=== PATIENT | female | born 1975 | race Caucasian/White ===

== ENCOUNTER 2018-09-20 11:47 | Day surgery (SDC) | payer OTHER ==
[~2018-09-20] VITALS: Ht 165.1 cm; Wt 138.0 kg
[2018-09-20] MEDS ORDERED: PROPOFOL 1% 20 ML VIAL IVP ONE (11:48)
[2018-09-20] MEDS ORDERED: LIDOCAINE/PF 2% 5 ML SYRINGE IVP ONE (11:48)
[2018-09-20] MEDS ORDERED: SODIUM CHLORIDE 0.9% 1,000 ML IV ONE ×2 (12:00→12:30)
== END 2018-09-20 15:20 | disposition home or self-care (01) ==
LOC: SURGERY 11:47
PROVIDERS: ATTEND Student in an Organized Health Care Education/Training Program
DX: K25.9 Gastric ulcer, unspecified as acute or chronic, without hemorrhage or perforation (principal); K44.9 Diaphragmatic hernia without obstruction or gangrene; I10 Essential (primary) hypertension; F41.8 Other specified anxiety disorders; E11.40 Type 2 diabetes mellitus with diabetic neuropathy, unspecified; Z87.442 Personal history of urinary calculi
CPT/HCPCS: 36415; 43239; 84702; 88305; 88312; 88313; C1769; J2704; J3490; J7030

== ENCOUNTER 2019-04-18 10:58 | Day surgery (SDC) | payer OTHER ==
[~2019-04-18] VITALS: Ht 165.1 cm; Wt 144.1 kg
[~2019-04-18 10:58] MED LIST: SODIUM CHLORIDE 0.9% 1,000 ML IV ONE
[2019-04-18] MEDS ORDERED: LIDOCAINE/PF 2% 5 ML VIAL IM ONE (10:59)
[2019-04-18] MEDS ORDERED: PROPOFOL 1% 20 ML VIAL IVP ONE (10:59)
[2019-04-18] MEDS ORDERED: SODIUM CHLORIDE 0.9% 1,000 ML IV ONE (11:00)
[2019-04-18] MEDS ORDERED: BUPR-93 PO (11:15)
[2019-04-18] MEDS ORDERED: OMEG-135 PO (11:15)
[2019-04-18] MEDS ORDERED: TRAZ-220 PO (11:15)
[2019-04-18] MEDS ORDERED: INSU500V SQ ×2 (11:15)
[2019-04-18] MEDS ORDERED: CHOL50004 PO (11:15)
[2019-04-18] MEDS ORDERED: VITA-328 PO (11:15)
[2019-04-18] MEDS ORDERED: LISI-662 PO (11:15)
[2019-04-18] MEDS ORDERED: TAPE50TA2 PO (11:15)
[2019-04-18] MEDS ORDERED: LAMO100 PO (11:15)
[2019-04-18] MEDS ORDERED: GABA-533 PO (11:15)
[2019-04-18] MEDS ORDERED: SIMV-260 PO (11:15)
[2019-04-18] MEDS ORDERED: DEXTROSE 50%-WATER 25 GM/50 ML SYRINGE IVP ONE ×2 (11:30→11:31)
[2019-04-18 11:36] LABS: GLUCOMETER DEV NAME(LOC) SDS.; GLUCOSE,POINT OF CARE 49 MG/DL (70-110)
[2019-04-18 11:54] LABS: GLUCOSE,RANDOM 50 mg/dL (70-110); HCG,QUANTITATIVE < 1 mIU/mL (0-6)
[2019-04-18 13:46] LABS: GLUCOMETER DEV NAME(LOC) SDS.; GLUCOSE,POINT OF CARE 58 MG/DL (70-110)
[2019-04-18 14:46] LABS: GLUCOMETER DEV NAME(LOC) SDS.; GLUCOSE,POINT OF CARE 80 MG/DL (70-110)
== END 2019-04-18 14:00 | disposition home or self-care (01) ==
LOC: SURGERY 10:58
PROVIDERS: ATTEND Student in an Organized Health Care Education/Training Program
DX: R13.10 Dysphagia, unspecified (principal); Z79.01 Long term (current) use of anticoagulants; Z79.899 Other long term (current) drug therapy; Z88.0 Allergy status to penicillin; Z88.8 Allergy status to other drugs, medicaments and biological substances; Z88.1 Allergy status to other antibiotic agents; Z91.040 Latex allergy status; R97.8 Other abnormal tumor markers
CPT/HCPCS: 36415; 43239; 82947; 82962; 84702; 88305; 88312; 88313; C1769; J2704; J3490; J7030